=== PATIENT | male | born 1955 | race Caucasian/White ===

== ENCOUNTER 2024-04-04 08:00 | Outpatient (CLI) | payer BC | END 2024-04-04 08:01 | disposition home or self-care (01) | LOC: CSHWCC 08:00 | PROVIDERS: ATTEND Nurse Practitioner Family | DX: E11.622 Type 2 diabetes mellitus with other skin ulcer (principal); L97.222 Non-pressure chronic ulcer of left calf with fat layer exposed; I25.10 Atherosclerotic heart disease of native coronary artery without angina pectoris | CPT/HCPCS: 11042; 11045; 87070; 87077; 87186; 87205; 99213; G0463 ==

== ENCOUNTER 2024-04-18 10:24 | Outpatient (CLI) | payer BC | END 2024-04-18 10:25 | disposition home or self-care (01) | LOC: CSHWCC 10:24 | PROVIDERS: ATTEND Nurse Practitioner Family | DX: E11.622 Type 2 diabetes mellitus with other skin ulcer (principal); L97.222 Non-pressure chronic ulcer of left calf with fat layer exposed; I25.10 Atherosclerotic heart disease of native coronary artery without angina pectoris | CPT/HCPCS: 11042; 11045 ==

== ENCOUNTER 2024-04-25 11:36 | Outpatient (CLI) | payer BC | END 2024-04-25 11:37 | disposition home or self-care (01) | LOC: CSHWCC 11:36 | PROVIDERS: ATTEND Nurse Practitioner Family | DX: E11.622 Type 2 diabetes mellitus with other skin ulcer (principal); L97.222 Non-pressure chronic ulcer of left calf with fat layer exposed; I25.10 Atherosclerotic heart disease of native coronary artery without angina pectoris | CPT/HCPCS: 11042; 11045 ==

== ENCOUNTER 2024-05-02 11:30 | Outpatient (CLI) | payer BC | END 2024-05-02 11:31 | disposition home or self-care (01) | LOC: CSHWCC 11:30 | PROVIDERS: ATTEND Nurse Practitioner Family | DX: L89.151 Pressure ulcer of sacral region, stage 1 (principal); E11.622 Type 2 diabetes mellitus with other skin ulcer; L97.222 Non-pressure chronic ulcer of left calf with fat layer exposed; I25.10 Atherosclerotic heart disease of native coronary artery without angina pectoris | CPT/HCPCS: 11042; 11045; 99212; G0463 ==

== ENCOUNTER 2024-05-09 12:49 | Outpatient (CLI) | payer BC | END 2024-05-09 12:50 | disposition home or self-care (01) | LOC: CSHWCC 12:49 | PROVIDERS: ATTEND Nurse Practitioner Family | DX: E11.622 Type 2 diabetes mellitus with other skin ulcer (principal); L89.151 Pressure ulcer of sacral region, stage 1; L97.222 Non-pressure chronic ulcer of left calf with fat layer exposed; I25.10 Atherosclerotic heart disease of native coronary artery without angina pectoris | CPT/HCPCS: 11042 ==

== ENCOUNTER 2024-05-24 14:21 | Outpatient (CLI) | payer BC | END 2024-05-24 14:22 | disposition home or self-care (01) | LOC: CSHWCC 14:21 | PROVIDERS: ATTEND Nurse Practitioner Family | DX: L89.151 Pressure ulcer of sacral region, stage 1 (principal); E11.622 Type 2 diabetes mellitus with other skin ulcer; L97.222 Non-pressure chronic ulcer of left calf with fat layer exposed; I25.10 Atherosclerotic heart disease of native coronary artery without angina pectoris | CPT/HCPCS: 97597 ==